=== PATIENT | female | born 1955 | race Caucasian/White ===

== ENCOUNTER → 2018-05-12 16:13 | Outpatient (CLI) | payer BC, SELFPAY ==
[2018-05-12 18:16] LABS: ALB/GLOB Ratio 1.3 RATIO (0.9-2.4); AST(SGOT) 22 U/L (15-37); Alanine Aminotransfer ALT/SGPT 32 U/L (13-56); Alkaline Phosphatase 65 U/L (45-117); Anion Gap 9 (5-15); BUN 11 mg/dL (7-18); BUN/Creat Ratio 15.2 RATIO (10-20); Calcium,Total 8.9 mg/dL (8.5-10.1); Chloride 105 mmol/L (98-107); Creatinine, Serum 0.72 mg/dL (0.55-1.02); EST Glomerular Filtration Rate 87 mL/min (>60); Est Glom Filt Rate - Afr Amer 106 mL/min (>60); Globulin 3.1 g/dL (2.2-4.2); Glucose 110 mg/dL (74-106); Potassium 3.5 mmol/L (3.5-5.1); Protein, Total 7.1 g/dL (6.4-8.2); Sodium Level 143 mmol/L (136-145)
[2018-05-12 18:17] LABS: Absolute Lymphocyte Count 2.02 X10^3/ul (0.83-4.51); Absolute Neutrophil Count 2.7 X10^3/uL (2.0-7.7); Basophil# 0.02 X10^3/uL; Basophil% 0.4 % (0-1); Eosinophil# 0.08 X10^3/uL; Eosinophils% 1.5 % (0-5); Hematocrit 36.9 % (37-47); Hemoglobin 11.7 g/dl (12.0-15.0); Lymphocyte # 2.02 X10^3/ul (4.0); Lymphocyte % 37.9 % (19-41); Mean Corp Hgb Conc 31.7 g/gl (32-36); Mean Corpuscular Hgb 29.2 pg (27.0-32.0); Mean Platelet Vol. 10.2 fl (6.2-12.0); Monocyte# 0.49 X10^3/uL; Monocyte% 9.2 % (0-10); Neutrophil # 2.71 X10^3/uL (2.7-7.7); Neutrophil % 50.8 % (47-70); Platelet Count 233 K/mm3 (150-450); RBC Distribution Width CV 12.9 % (11.6-14.6); RBC Distribution Width SD 43.2 fl (35.1-43.9); Red Blood Count 4.01 M/mm3 (4.2-5.4); White Blood Count 5.3 K/mm3 (4.4-11.0)
[2018-05-12 18:20] LABS: POSITIVE COUNT NO; POSITIVE DIFFERENTIAL NO; POSITIVE MORPHOLOGY NO
== END ==
PROVIDERS: Family Provider Family Medicine; PCP Family Medicine; Visit Provider Internal Medicine Rheumatology
DX: M06.4 Inflammatory polyarthropathy (principal); K21.0 Gastro-esophageal reflux disease with esophagitis; J30.9 Allergic rhinitis, unspecified
CPT/HCPCS: 36415; 80053; 85025

== ENCOUNTER → 2018-11-20 07:23 | Outpatient (CLI) | payer BC, SELFPAY ==
[2018-11-20 10:19] LABS: Absolute Lymphocyte Count 1.66 X10^3/ul (0.83-4.51); Absolute Neutrophil Count 2.5 X10^3/uL (2.0-7.7); Basophil# 0.02 X10^3/uL; Basophil% 0.4 % (0-1); Eosinophils% 2.1 % (0-5); Hematocrit 39.2 % (37-47); Hemoglobin 12.9 g/dl (12.0-15.0); Lymphocyte # 1.66 X10^3/ul (4.0); Lymphocyte % 35.5 % (19-41); Mean Corp Hgb Conc 32.9 g/gl (32-36); Mean Corpuscular Hgb 30.1 pg (27.0-32.0); Mean Corpuscular Volume 91.4 fL (81-99); Mean Platelet Vol. 10.4 fl (6.2-12.0); Monocyte% 8.5 % (0-10); Neutrophil % 53.5 % (47-70); Platelet Count 241 K/mm3 (150-450); RBC Distribution Width CV 12.5 % (11.6-14.6); RBC Distribution Width SD 41.5 fl (35.1-43.9); Red Blood Count 4.29 M/mm3 (4.2-5.4); White Blood Count 4.7 K/mm3 (4.4-11.0)
[2018-11-20 10:22] LABS: POSITIVE COUNT NO; POSITIVE DIFFERENTIAL NO; POSITIVE MORPHOLOGY NO
[2018-11-20 10:42] LABS: ALB/GLOB Ratio 1.4 RATIO (0.9-2.4); AST(SGOT) 26 U/L (15-37); Alanine Aminotransfer ALT/SGPT 33 U/L (13-56); Albumin, Serum 4.2 g/dL (3.2-5.0); Alkaline Phosphatase 62 U/L (45-117); Anion Gap 13 (5-15); BUN 12 mg/dL (7-18); BUN/Creat Ratio 16.4 RATIO (10-20); Calcium,Total 9.1 mg/dL (8.5-10.1); Chloride 105 mmol/L (98-107); Creatinine, Serum 0.73 mg/dL (0.55-1.02); EST Glomerular Filtration Rate 86 mL/min (>60); Est Glom Filt Rate - Afr Amer 104 mL/min (>60); Glucose 95 mg/dL (74-106); Potassium 4.1 mmol/L (3.5-5.1); Protein, Total 7.2 g/dL (6.4-8.2); Sodium Level 145 mmol/L (136-145)
== END ==
PROVIDERS: Family Provider Family Medicine; PCP Family Medicine; Referring Provider Internal Medicine Rheumatology; Visit Provider Internal Medicine Rheumatology
DX: M06.4 Inflammatory polyarthropathy (principal); K21.0 Gastro-esophageal reflux disease with esophagitis; J30.9 Allergic rhinitis, unspecified
CPT/HCPCS: 36415; 80053; 85025

== ENCOUNTER → 2019-05-18 07:15 | Outpatient (CLI) | payer BC, SELFPAY ==
[2019-05-18 10:31] LABS: Absolute Lymphocyte Count 1.09 X10^3/ul (0.83-4.51); Absolute Neutrophil Count 2.2 X10^3/uL (2.0-7.7); Basophil# 0.01 X10^3/uL; Basophil% 0.3 % (0-1); Eosinophil# 0.11 X10^3/uL; Eosinophils% 2.9 % (0-5); Hematocrit 39.2 % (37-47); Hemoglobin 12.9 g/dl (12.0-15.0); Lymphocyte # 1.09 X10^3/ul (4.0); Lymphocyte % 28.5 % (19-41); Mean Corp Hgb Conc 32.9 g/gl (32-36); Mean Corpuscular Hgb 29.5 pg (27.0-32.0); Mean Corpuscular Volume 89.5 fL (81-99); Mean Platelet Vol. 10.6 fl (6.2-12.0); Monocyte# 0.38 X10^3/uL; Monocyte% 9.9 % (0-10); Neutrophil # 2.23 X10^3/uL (2.7-7.7); Neutrophil % 58.1 % (47-70); Platelet Count 236 K/mm3 (150-450); RBC Distribution Width CV 12.6 % (11.6-14.6); RBC Distribution Width SD 40.9 fl (35.1-43.9); Red Blood Count 4.38 M/mm3 (4.2-5.4); White Blood Count 3.8 K/mm3 (4.4-11.0)
[2019-05-18 10:34] LABS: POSITIVE COUNT NO; POSITIVE DIFFERENTIAL NO; POSITIVE MORPHOLOGY NO
[2019-05-18 10:49] LABS: ALB/GLOB Ratio 1.2 RATIO (0.9-2.4); AST(SGOT) 22 U/L (15-37); Alanine Aminotransfer ALT/SGPT 28 U/L (13-56); Albumin, Serum 4.1 g/dL (3.2-5.0); Alkaline Phosphatase 70 U/L (45-117); Anion Gap 9 (5-15); BUN 12 mg/dL (7-18); BUN/Creat Ratio 15.1 RATIO (10-20); Calcium,Total 9.5 mg/dL (8.5-10.1); Chloride 106 mmol/L (98-107); EST Glomerular Filtration Rate 78 mL/min (>60); Est Glom Filt Rate - Afr Amer 94 mL/min (>60); Globulin 3.3 g/dL (2.2-4.2); Glucose 110 mg/dL (74-106); Potassium 3.9 mmol/L (3.5-5.1); Protein, Total 7.4 g/dL (6.4-8.2); Sodium Level 142 mmol/L (136-145)
== END ==
PROVIDERS: Family Provider Family Medicine; PCP Family Medicine; Referring Provider Internal Medicine Rheumatology; Visit Provider Internal Medicine Rheumatology
DX: M06.4 Inflammatory polyarthropathy (principal); K21.0 Gastro-esophageal reflux disease with esophagitis; J30.9 Allergic rhinitis, unspecified
CPT/HCPCS: 36415; 80053; 85025

== ENCOUNTER → 2019-11-12 07:54 | Outpatient (CLI) | payer BC, SELFPAY ==
[2019-11-12 10:57] LABS: Absolute Lymphocyte Count 1.98 X10^3/uL (0.83-4.51); Absolute Neutrophil Count 4.8 X10^3/uL (2.0-7.7); Basophil# 0.03 X10^3/uL; Basophil% 0.4 % (0-1); Eosinophil# 0.08 X10^3/uL; Eosinophils% 1.1 % (0-5); Hematocrit 40.4 % (37-47); Hemoglobin 13.2 g/dL (12.0-15.0); Lymphocyte # 1.98 X10^3/ul (4.0); Lymphocyte % 26.4 % (19-41); Mean Corp Hgb Conc 32.7 g/dL (32-36); Mean Corpuscular Hgb 30.2 pg (27.0-32.0); Mean Corpuscular Volume 92.4 fL (81-99); Mean Platelet Vol. 10.4 fl (6.2-12.0); Monocyte# 0.58 X10^3/uL; Monocyte% 7.7 % (0-10); NRBC Flagged by Analyzer 0 % (0-5); Neutrophil # 4.79 X10^3/uL (2.7-7.7); Neutrophil % 63.7 % (47-70); Platelet Count 288 K/mm3 (150-450); RBC Distribution Width CV 12.5 % (11.6-14.6); RBC Distribution Width SD 42.6 fl (35.1-43.9); Red Blood Count 4.37 M/mm3 (4.2-5.4); White Blood Count 7.5 K/mm3 (4.4-11.0)
[2019-11-12 11:18] LABS: ALB/GLOB Ratio 1.2 RATIO (0.9-2.4); AST(SGOT) 19 U/L (15-37); Alanine Aminotransfer ALT/SGPT 27 U/L (13-56); Albumin, Serum 4.2 g/dL (3.2-5.0); Alkaline Phosphatase 70 U/L (45-117); Anion Gap 6 (5-15); BUN 14 mg/dL (7-18); BUN/Creat Ratio 17.2 RATIO (10-20); Calcium,Total 9.8 mg/dL (8.5-10.1); Chloride 107 mmol/L (98-107); Creatinine, Serum 0.82 mg/dL (0.55-1.02); EST Glomerular Filtration Rate 76 mL/min (>60); Est Glom Filt Rate - Afr Amer 92 mL/min (>60); Globulin 3.4 g/dL (2.2-4.2); Glucose 104 mg/dL (74-106); Potassium 4.1 mmol/L (3.5-5.1); Protein, Total 7.6 g/dL (6.4-8.2); Sodium Level 141 mmol/L (136-145)
== END ==
PROVIDERS: Family Provider Family Medicine; PCP Family Medicine; Referring Provider Internal Medicine Rheumatology; Visit Provider Internal Medicine Rheumatology
DX: M06.4 Inflammatory polyarthropathy (principal); K21.0 Gastro-esophageal reflux disease with esophagitis; J30.9 Allergic rhinitis, unspecified
CPT/HCPCS: 36415; 80053; 85025

== ENCOUNTER → 2020-08-01 16:14 | Outpatient (CLI) | payer BC, SELFPAY ==
[2020-08-01 17:43] LABS: Absolute Lymphocyte Count 1.98 X10^3/uL (0.83-4.51); Absolute Neutrophil Count 3.1 X10^3/uL (2.0-7.7); Basophil# 0.01 X10^3/uL; Basophil% 0.2 % (0-1); Eosinophil# 0.09 X10^3/uL; Eosinophils% 1.6 % (0-5); Hematocrit 36.4 % (37-47); Hemoglobin 11.9 g/dL (12.0-15.0); Lymphocyte # 1.98 X10^3/ul (4.0); Lymphocyte % 34.9 % (19-41); Mean Corp Hgb Conc 32.7 g/dL (32-36); Mean Corpuscular Volume 91.7 fL (81-99); Mean Platelet Vol. 10.9 fl (6.2-12.0); Monocyte# 0.51 X10^3/uL; NRBC Flagged by Analyzer 0 % (0-5); Neutrophil # 3.06 X10^3/uL (2.7-7.7); Neutrophil % 53.9 % (47-70); Platelet Count 249 K/mm3 (150-450); RBC Distribution Width CV 12.3 % (11.6-14.6); RBC Distribution Width SD 41.6 fl (35.1-43.9); Red Blood Count 3.97 M/mm3 (4.2-5.4); White Blood Count 5.7 K/mm3 (4.4-11.0)
[2020-08-01 18:21] LABS: ALB/GLOB Ratio 1.1 RATIO (0.9-2.4); AST(SGOT) 25 U/L (15-37); Alanine Aminotransfer ALT/SGPT 31 U/L (13-56); Albumin, Serum 3.9 g/dL (3.2-5.0); Alkaline Phosphatase 74 U/L (45-117); Anion Gap 6 (5-15); BUN 19 mg/dL (7-18); BUN/Creat Ratio 25.5 RATIO (10-20); Calcium,Total 9.3 mg/dL (8.5-10.1); Chloride 103 mmol/L (98-107); Creatinine, Serum 0.74 mg/dL (0.55-1.02); EST Glomerular Filtration Rate 84 mL/min (>60); Est Glom Filt Rate - Afr Amer 101 mL/min (>60); Globulin 3.4 g/dL (2.2-4.2); Glucose 119 mg/dL (74-106); Potassium 3.8 mmol/L (3.5-5.1); Protein, Total 7.3 g/dL (6.4-8.2); Sodium Level 139 mmol/L (136-145)
== END ==
PROVIDERS: PCP Family Medicine; Referring Provider Internal Medicine Rheumatology; Visit Provider Internal Medicine Rheumatology
DX: M06.4 Inflammatory polyarthropathy (principal); K21.0 Gastro-esophageal reflux disease with esophagitis; J30.9 Allergic rhinitis, unspecified
CPT/HCPCS: 36415; 80053; 85025

== ENCOUNTER → 2022-07-11 | Outpatient (CLI) | payer BC, SELFPAY ==
--- NOTE | 2022-07-11 16:53 | CT_ITS ---
EXAM: CT RIGHT LOWER EXTREMITY WITHOUT INTRAVENOUS CONTRAST CLINICAL INDICATION: templating for right VINNY TECHNIQUE: Helically acquired images were obtained of the right lower extremity without intravenous contrast. 2-D reformats were performed by the technologist. CTDIvol = ( 12.14 ) mGy, DLP = ( 637.49 ) mGycm This CT exam was performed using one or more of the following dose reduction techniques: automated exposure control, adjustment of the mA and/or kV according to patient size, and/or use of iterative reconstruction technique. This report was created using [employer] technology. COMPARISON: None. FINDINGS: End-stage osteoarthrosis involving the right hip joint. No acute or healing fracture or malalignment. No unusual or suspicious lytic or sclerotic lesions of bone. Degenerative changes of the spine and SI joints as well as the pubic symphysis. Great 1 degenerative anterolisthesis of L4 on L5. Moderate osteoarthrosis of the medial femoral tibial compartments bilaterally. CT/Extremity Lower without Contra IMPRESSION: 1. End-stage osteoarthrosis involving the right hip joint. 2. Moderate osteoarthrosis of the medial femoral tibial compartments bilaterally. Electronically Signed: Sebastian Block MD at 1:07 EDT ,
== END | disposition home or self-care (01) ==
LOC: CT 16:51
PROVIDERS: PCP Family Medicine; Referring Provider Orthopaedic Surgery; Visit Provider Orthopaedic Surgery
DX: M16.11 Unilateral primary osteoarthritis, right hip (principal)
CPT/HCPCS: 73700

== ENCOUNTER 2022-08-27 05:27 | Day surgery (SDC) | payer BC, SELFPAY ==
[2022-08-14 16:14] LABS: Absolute Lymphocyte Count 2.72 X10^3/uL (0.83-4.51); Absolute Neutrophil Count 4.1 X10^3/uL (2.0-7.7); Basophil# 0.04 X10^3/uL; Basophil% 0.5 % (0-1); Eosinophils% 1.3 % (0-5); Hematocrit 38.1 % (37-47); Hemoglobin 13.4 g/dL (12.0-15.0); Lymphocyte # 2.72 X10^3/ul (0.83-4.51); Lymphocyte % 36.1 % (19-41); Mean Corp Hgb Conc 35.2 g/dL (32-36); Mean Corpuscular Hgb 30.9 pg (27.0-32.0); Mean Platelet Vol. 9.8 fl (6.2-12.0); Monocyte# 0.57 X10^3/uL; Monocyte% 7.6 % (0-10); NRBC Flagged by Analyzer 0 % (0-5); Neutrophil # 4.08 X10^3/uL (2.7-7.7); Neutrophil % 54.1 % (47-70); Platelet Count 276 K/mm3 (150-450); RBC Distribution Width CV 12.7 % (11.6-14.6); RBC Distribution Width SD 41.1 fl (35.1-43.9); Red Blood Count 4.33 M/mm3 (4.2-5.4); White Blood Count 7.5 K/mm3 (4.4-11.0)
[2022-08-14 16:24] LABS: Prothrombin Time (Protime)PT. 12.5 SECONDS (11.7-14.9)
[2022-08-14 16:25] LABS: Partial Thromboplast Time 25.4 Seconds (24.1-36.2)
[2022-08-14 16:44] LABS: Hemoglobin A1c 6.6 % (3.8-5.6)
[2022-08-22 10:34] LABS: Fructosamine 276 umol/L (0-285)
[2022-08-27] VITALS (13 sets, daily range): BP systolic 103–133; BP diastolic 48–68; PULSE 49–83; RESP 14–16; TEMP 36.2–36.7; O2SAT 94–100; BMI 24.5
--- NOTE | 2022-08-27 | HIP_PTH ---
PATIENT: TERRENCE BUNDY [place] [facility] [id number] AGE/SX: 66/F ROOM: RE08/27/[address]: Dr. Roscoe Swanson DO : 1955 BED: DIS: 08/27/2022 SPEC #: [id number] RECD: 08/27/22 13:30 STATUS: COURTNEY PETER #: [id number] CARLOS: 08/27/22 00:[address]: Roscoe Swanson DEPT: SURGICAL PATHOLOGY RECD BY: Román Aj ENTERED: 08/27/22 13:30 SP TYPE: TOTAL HIP OTHR DR: Dr. Geovani Smith MD Tissues: Hip, NOS Procedures: Decalcification bone/plaque Surgery Specimen Level IV HEADER OPERATION: Total hip replacement robotic arm assist PRE-OP DIAGNOSIS: Degenerative joint disease of right hip TISSUE SUBMITTED: Right hip bone MICROSCOPIC DIAGNOSIS Right hip bone, total hip replacement/resection: Femoral head with degenerative osteoarthritic changes. SJ:porfirio 08/30/2022 MICROSCOPIC DESCRIPTION Slides are reviewed. GROSS DESCRIPTION Received is one container labeled with the patient's name and designated right hip bone. The specimen consists of a distorted femoral head measuring 5.5 x 4.5 x 4.5 cm. Also present in the specimen container are multiple irregular fragments of soft tissue and bone reamings aggregating to 6 x 5 x 1 cm. The articular surface displays prominent osteophyte formation, eburnation and bone erosion. Spray Gun Operator sections are submitted in two cassettes after decalcification as follows: 1 - bone reamings, 2 ? femoral head. / AM:porfirio 08/27/2022 TC:5 CPT: 63960, 51163
[2022-08-27] MEDS: Lactated Ringers 1,000 ML 999 ML IV (06:17)
[2022-08-27] MEDS: Magnesium 1 GM over 15 mins IV (06:17)
[2022-08-27] MEDS: Gabapentin 600 MG Tablet PO (06:23)
[2022-08-27] MEDS: Scopolamine 1mg/72hr Patch 1 PATCH TD (06:23)
[2022-08-27] MEDS: Acetaminophen 500 MG Tablet 1000 MG PO ×2 (06:23→14:00)
[2022-08-27] MEDS: Celecoxib 200 MG Capsule 400 MG PO (06:24)
[2022-08-27 06:50] LABS: Bedside Glucose 127 mg/dL (74-106)
--- NOTE | 2022-08-27 07:11 | HP.PCM_ITS ---
History and Physical Date of Admission: 08/27/22 [facility] [address] [place] [address] OFFICE VISIT Date of Service:? 08/14/22 MR#: [id number] Acct: [id number] Name:TERRENCE PEREZ Rep #: [id number] : 1955 ? ? Provider: Dr. Roscoe Swanson, DO Age/Sex:? 66/F ? ? [place] [facility] [place] Status: Signed Intake Intake Visit Reasons:?right hip Is patient in pain?: Yes Allergies cefuroxime [From Ceftin] Allergy (Severe, Verified 08/14/22 15:20) Rash Medications calcium carbonate 500 mg calcium (1,250 mg) chewable tablet (Calcium 500) 500 mg PO DAILY 06/21/22 [History Confirmed 08/14/22] chlorthalidone 25 mg tablet 25 tablet PO DAILY 06/21/22 [History Confirmed 08/14/22] cholecalciferol (vitamin D3) 10 mcg (400 unit) capsule 10 mcg PO DAILY 06/21/22 [History Confirmed 08/14/22] fluticasone propionate 50 mcg/actuation nasal spray,suspension (Flonase Allergy Relief) 1 spray intranasal PRN PRN ALLERGIES 06/21/22 [History Confirmed 08/14/22] gabapentin 100 mg capsule 100 mg PO QHS 06/21/22 [History Confirmed 08/14/22] lansoprazole 30 mg capsule,delayed release (Prevacid) 30 mg PO DAILY 06/21/22 [History Confirmed 08/14/22] loratadine 10 mg tablet (Claritin) 10 mg PO DAILY 06/21/22 [History Confirmed 08/14/22] mecobalamin (vitamin B12) 5,000 mcg disintegrating tablet 5,000 mcg PO DAILY 06/21/22 [History Confirmed 08/14/22] multivitamin 1 tab PO DAILY 06/21/22 [History Confirmed 08/14/22] oxycodone-acetaminophen 5 mg-325 mg tablet (Percocet) 1 tablet PO PRN PRN Pain 06/21/22 [History Confirmed 08/14/22] potassium citrate 99 mg capsule 200 mg PO DAILY 06/21/22 [History Confirmed 08/14/22] [facility] Medical History?(Updated 08/13/22 @ 13:26 by Julisa Lowe) Ambulates with cane Arthritis Back pain Cancer Cardiology follow-up encounter Former smoker Gastric reflux High cholesterol History of colon cancer History of echocardiogram History of edema History of hiatal hernia History of Holter monitoring History of irregular heartbeat History of steroid therapy Hypertension Migraine headache Post-menopausal Shortness of breath on exertion Walker as ambulation aid Wears contact lenses Wears glasses Surgical History?(Updated 06/21/22 @ 08:33 by Jailyn Yoo) History of colon resection Hx of bilateral oophorectomy Hx of cholecystectomy Hx of hysterectomy Family History?(Updated 06/21/22 @ 08:35 by Jailyn Yoo) Father Heart disease Social History?(Updated 06/21/22 @ 08:35 by Jailyn Yoo) Smoking Status:? Former smoker pack-years: 1 Tobacco: How many years used:? 15 alcohol intake:? never HPI right hip Details: Parts of this documentation were recorded by a scribe, this documentation accurately reflects the service provided and the decisions made by me, Dr. Roscoe Swanson, DO 08/14/22 1511. TERRENCE BUNDY is a 66 year old F here today for her preop appointment for her right total hip arthroplasty. Patient states that her hip pain is progressing. Her pain is over her posterior hip, into her groin and anterior thigh. She is unable to lift her leg. She is using a rollator to ambulating. She is taking percocet and advil for pain. Ortho Exam General General: Yes no acute distress Neurologic: Yes alert and Yes oriented x3 Psychologic: Yes reasonable and appropriate Right Knee Skin/Wound: Yes CDI, No erythema, No ecchymosis and No swelling Right Hip Skin: Yes CDI, No Ecchymosis, No soft tissue swelling and No Erythema HIP: no skin changes no masses 5 internal rotation with pain 78 external rotation without groin pain /4 dorsalis pedis and posterior tibial no significant edema 5 out of 5 knee and ankle strength Intact sensation light touch throughout lower extremity Coding Level of Care Code Off vis,est,level 3 Diagnoses Degenerative joint disease of right hip? M16.11 Assessment and Plan Assessment and Plan (1) Degenerative joint disease of right hip: ?Status:?Acute Plan Spoke with the patient about the total hip arthroplasty surgery and recovery. Explained she may have a slight leg length discrepancy after surgery due to the collapse of her hip as seen on the CT scan. Spoke with her about the advantage of posterior approach. She will have 6 weeks of stict hip precautions. Explained she will be able to return to driving when she feels confident she can safely control a vehicle. Explained she has a bad back which can cause her right leg pain which wont help with a total hip arthroplasty. She does not need to drink the ensure drink due to stomach issues.? She will be same day surgery, explained that she will be at the hospital for about 6 hours post op and then will be able to go home. Risks, benefits and alternatives of surgery reviewed including but not limited to bleeding, infection, nerve , artery and/or tissue damage, fracture, VTE, leg length discrepancy, dislocation, foot drop, need for hip precautions, continued pain and expected post-operative course. Spoke with her about the risk of foot drop. Follow up for 2 weeks post op or sooner if pain, swelling, numbness or associated symptoms, or concerns develop.? All questions answered. Patient in agreement of plan. 08/14/22 4010 <Electronically signed by Roscoe Swanson DO> Date Roscoe Swanson DO Cosignkassy Signature: Date (if applicable) ? CC: ? ~I have re-examined the patient. There are no clinical changes since date of exam
[2022-08-27] MEDS: Vancomycin IV 1,000 MG/200 ML BAG 200 MG IV (07:13)
[2022-08-27] MEDS: dexAMETHasone 10 MG/ML Vial IV (07:55)
[2022-08-27] MEDS: Lactated Ringers 1,000 ML 100 ML IV (08:00)
--- NOTE | 2022-08-27 09:47 | DCINST_ITS ---
Discharge Instructions Diet Discharge Diet: No restrictions Activity Weight Bearing Status: Weight bearing as tolerated Dressing / Incision Call your doctor if you observe: Shortness of breath and Chest pain Additional Dressing/Incision Instructions:: Do not shower 72hrs. Begin daily showering warm water antibacterial soap postop day #3( 72hrs Post-operatively) and then daily. Leave the dressing on for 72 hours postoperatively then may remove prior to first shower and change dressing daily after this until no drainage for 2 consecutive days then may leave open to air. Follow hip precautions that were reviewed in hospital. Wear compression stockings, may remove at night. Start physical therapy as directed in hospital. Follow prescriptions instructions do not take any other pain medication or differ dosing without consulting your physician. Do NOT take your preoperative Percocet . do not combine pain medications. do not take oral NSAIDs until blood thinner has been completed , then may begin the day after completion if needed . Call Dr. Swanson's office with any concerns. Follow Up Care Please Follow Up With: Roscoe Swanson DO When: 2 weeks Test Results: Test results from this visit will be discussed in further detail at your follow- up appointment, if applicable. Discharge Plan Admission Attending Provider: Roscoe Swnason Primary Care Provider: Geovani Smith Discharge Orders/Prescriptions Prescriptions: New acetaminophen 500 mg Tablet 1,000 mg PO Q6H Qty: 100 1RF oxycodone 5 mg tablet 5 - 10 mg PO Q4H PRN (Reason: pain) 7 Days Qty: 60 0RF Eliquis 2.5 mg tablet 2.5 mg PO BID Qty: 42 0RF clindamycin HCl 300 mg capsule 600 mg PO Q8H Qty: 4 0RF Rx Instructions: Take 2 tablets 9 PM day of surgery and 2 tablets after you wake up day after surgery in the morning Continued lansoprazole [Prevacid] 30 mg capsule,delayed release(DR/EC) 30 mg PO DAILY loratadine [Claritin] 10 mg tablet 10 mg PO DAILY fluticasone propionate [Flonase Allergy Relief] 50 mcg/actuation spray,suspension 1 spray intranasal PRN PRN (Reason: ALLERGIES) Rx Instructions: administer into each nostril gabapentin 100 mg capsule 100 mg PO QHS Label Comments: TAKE 1 CAPSULE BY MOUTH EVERY DAY FOR 30 DAYS chlorthalidone 25 mg tablet 25 tablet PO DAILY multivitamin Tablet 1 tab PO DAILY cholecalciferol (vitamin D3) 10 mcg (400 unit) capsule 10 mcg PO DAILY calcium carbonate [Calcium 500] 500 mg calcium (1,250 mg) tablet,chewable 500 mg PO DAILY mecobalamin (vitamin B12) 5,000 mcg tablet,disintegrating 5,000 mcg PO DAILY potassium citrate 99 mg capsule 200 mg PO DAILY Discontinued oxycodone-acetaminophen [Percocet] 5-325 mg tablet 1 tablet PO PRN PRN (Reason: Pain) Referrals / Follow Up: Geovani Smith MD [Primary Care Provider] - Disposition Disposition (needs filled in before D/C Order can be placed): Home, Self Care
--- NOTE | 2022-08-27 09:57 | OP.PCM_ITS ---
Operative Report Date of Procedure: 08/27/22 Preoperative diagnosis: Right hip DJD Postoperative diagnosis: Same Procedure: CT-guided Makoplasty assisted right total hip arthroplasty Implants: Barnum Accolade II stem size 4, 132 degree neck angle -4 neck length 50 mm Trident II acetabular shell with 40 mm cancellous screw 32 mm ceramic head Anesthesia: Spinal EBL: 175 cc Complications: None Condition: Stable to PACU Indication for procedure: This is a 66-year-old female who has had long-standing arthrosis of the hip and 15 mm of shortening who has failed conservative treatment and wished to undergo total hip arthroplasty. We did discuss operative versus nonoperative intervention including risks of bleeding, infection , nerve artery tissue damage, need for further surgery, fracture, leg length discrepancy dislocation blood clot and need for postoperative physical therapy and postoperative expectations. An informed consent was signed. Procedure: Patient was met in the preoperative holding area once again the operative extremity was identified by both patient and physician and was marked. Patient was met by anesthesia . Anesthesia was started. patient was then positioned in the lateral decubitus position on a well-padded pegboard with an axillary roll. All bony prominences were checked and padded. The patient was prepped and draped in the usual sterile fashion. A timeout was called to ensure the proper patient procedure and extremity were being contemplated. Anatomic landmarks were palpated and marked for a standard posterior lateral approach. Prior to this the ASIS was palpated and 3 fingerbreadths proximal to this 3 pins were placed at a 45 degree angle into the iliac crest with good purchase, stab incisions were made with a 15 blade into the skin prior to placement. The Makoplasty array was then secured. A 10 blade scalpel was used to make a posterior incision through the skin and subcutaneous tissue. retractors were used and electrocautery was used to maintain meticulous hemostasis and dissect full-thickness flaps until the gluteal fascia was reached. The gluteal fascia was incised in line with the gluteal fibers. The bursal tissue was then freed from the underside and a Charnley retractor was placed. The femoral trochanteric checkpoint was placed and leg length was assessed using the trochanteric checkpoint and an EKG lead that was placed on the knee prior to prepping the leg .the fat pad was then elevated off of the external rotators with electrocautery and the external rotators were dissected off of the greater trochanter including the piriformis and were tagged with #1 Ethibond for later repair. The joint capsule opened with posterior trapdoor technique. The hip was surgically dislocated. The measurement on the preoperative CT from the top of the lesser trochanter to the femoral neck cut was marked Hohmann was placed around the lesser trochanter. A neck cutting guide was used to clem the neck with a Bovie and an oscillating saw was used complete the femoral neck cut. The femoral head was then removed and sized. We then turned our attention to the acetabulum. A Bovie was used to make a perforation in the anterior joint capsule and a Thomas retractor was placed this was repeated in the 6 o'clock position and a wide chacorta was placed there. With a long handled knife the labral and pulvinar tissue were removed. We then registered the acetabulum with the pointing array and confirmed our landmarks. Once the socket was thoroughly prepared and labral tissue and pulvinar was removed we single reamed with the robotic arm. We then used the robotic arm to position the acetabular implant and impacted it into place under robotic guidance. We then proceeded to place a posterior superior screw by drilling first measuring and inserting the screw. We then inserted a trial liner. And turned our attention back to the femur at this point a femoral elevator was used. As well as a pointed wide Hohmann around the lesser trochanter and a Hohmann to help retract the gluteus medius. A box chisel was used to remove excess lateral neck followed by a canal finder and a lateralizing reamer. This was followed by sequential broaches. Attention was made of the version within the canal based on preoperative templating. Once the final broach was seated we then trialed reduced the hip it was determined that a 132 degree neck angle with a -4 neck length was the appropriate size. Patient was 50 mm short preoperatively I did increase her preoperative length by 1 cm but did not feel comfortable lengthening it any further as her hip was already tight and I felt she would lose extension and abduction of the hip which was seen with trials. we then checked stability with shuck testing as well as flexion and internal rotation. then proceeded with hip extension and checked leg lengths at the knees and heels as well as with the trochanteric checkpoint and knee EKG lead. At this point trials were removed. A liner was inserted to the cup. The femoral stem was inserted. We re-trialed and then proceeded to impact the femoral head onto the Robin taper. We then surgically reduce the hip check stability again and leg lengths and were satisfied. Betadine rinse was allowed to sit for 5 minutes while everyone changed their gloves. Thorough irrigation was performed. Followed by closure of the external rotators with #2 FiberWire followed by closure of gluteal fascia with #1 Ethibond. 0 Vicryl fat stitches and 2-0 Vicryl subcutaneous stitches and julien in the skin. [place] were placed in the skin pin sites over the iliac crest and dressed with a Mepilex dressing. The main incision was dressed with a Mepilex ag dressing and an abduction pillow was placed. Patient tolerated the procedure well there was no intraoperative complications all counts were correct and the patient was brought back to the PACU in stable condition
--- NOTE | 2022-08-27 10:20 | RAD_ITS ---
STUDY: X-RAY - PELVIS AND RIGHT HIP REASON FOR EXAM: Female, 66 years old. Post op in pacu -- in PACU TECHNIQUE: 2 views of the pelvis and hip. COMPARISON: Comparison is made with prior study dated 06/21/2022. FINDINGS: The patient is status post right total hip replacement. There is good alignment. Postoperative soft tissue changes. RAD/Hip Min 2 Views (Portable) IMPRESSION: Status post right total hip prosthesis. There is good alignment. Postoperative soft tissue changes. Electronically Signed: Elia Bahena MD at 15:27 EDT ,
[2022-08-27] MEDS: oxyCODONE 5 MG Tablet PO (12:14)
[2022-08-27] MEDS: Clindamycin 900 MG/50 ML BAG 75 MG IV (14:00)
== END 2022-08-27 16:45 | disposition home or self-care (01) ==
LOC: SDC 05:30 → AC 05:30
PROVIDERS: Anesthesiology; PCP Family Medicine; Referring Provider Orthopaedic Surgery; Visit Provider Orthopaedic Surgery
PROC: 8E0Y0CZ Robotic Assisted Procedure of Lower Extremity, Open Approach (ICD-10-PCS; CPT 27130; principal; 2022-08-27 07:00)
DX: M16.11 Unilateral primary osteoarthritis, right hip (principal); I10 Essential (primary) hypertension; E78.00 Pure hypercholesterolemia, unspecified; Z79.899 Other long term (current) drug therapy; Z87.891 Personal history of nicotine dependence
CPT/HCPCS: 27130; S2900; 01214; 36415; 73502; 82962; 82985; 83036; 83735; 85025; 85610; 85730; 87081; 88305; 88311; 97162; C1776; J7120; J2405; J3475

== ENCOUNTER → 2023-06-23 | Outpatient (CLI) | payer BC, SELFPAY ==
--- NOTE | 2023-06-23 16:17 | RAD_ITS ---
INDICATION: DISC DEGENERATION EXAMINATION/TECHNIQUE: X-RAY - XR Spine Cervical 6 or More Views COMPARISON: FINDINGS: VERTEBRAE: Preserved vertebral body height. No fracture. Straightening of the normal cervical lordosis. No significant facet arthropathy. DISCS: C3-4: 2 mm anterolisthesis in flexion. C4-5: 2 mm anterolisthesis in neutral position and extension. 3 mm anterolisthesis in flexion. C5-6. 3 mm anterolisthesis in neutral position and in flexion, 2 mm anterolisthesis in extension. C6-7: Disc space narrowing. NECK SOFT TISSUES: No prevertebral soft tissue widening. LUNG APICES: Clear. RAD/Cerv Spine Obl/Flex/Ext Comp IMPRESSION: No acute fracture. Mild anterolisthesis at C3-4, C4-5 and C5-6, as above. Electronically Signed: Radha Barlow MD at 17:36 EDT Reading Location ID and State: [id number] / Tel , Service support ,
--- NOTE | 2023-06-23 16:17 | RAD_ITS ---
STUDY: X-RAY - LEFT SHOULDER REASON FOR EXAM: Female, 67 years old. PRIMARY OSTEOARTHRITIS TECHNIQUE: 4 view(s) of the shoulder. COMPARISON: None. FINDINGS: Mildly narrowed glenohumeral articulation. Mildly narrowed acromioclavicular joint. Normal acromion. Normal humeral head and visualized proximal humerus. The soft tissue structures are unremarkable. Normal visualized pulmonary apex. RAD/Shoulder min 2 Views IMPRESSION: Mild degenerative changes. No acute fracture or other significant bony pathology Electronically Signed: Geovani Preciado MD at 16:38 EDT ,
== END | disposition home or self-care (01) ==
PROVIDERS: PCP Family Medicine; Referring Provider Registered Nurse Maternal Newborn; Visit Provider Registered Nurse Maternal Newborn
DX: M50.30 Other cervical disc degeneration, unspecified cervical region (principal)
CPT/HCPCS: 72052; 73030

== ENCOUNTER → 2025-05-24 | Outpatient (CLI) | payer BC, SELFPAY ==
--- NOTE | 2025-05-24 16:45 | MRI_ITS ---
EXAM: PELVIS (ROUTINE) 05/24/2025 CLINICAL HISTORY: SACRAL AND SACROCOCCYGEAL FX. TECHNIQUE: T1, T2, stir, PELVIS (ROUTINE) Multiplanar and multisequence images were obtained without intravenous gadolinium contrast. CONTRAST: None COMPARISON: None FINDINGS: Bone marrow: There is metallic artifact from a right hip prosthesis. There is normal marrow signal in the pelvic bones with no evidence of occult fracture. There is normal marrow signal in the included portion of the left femur. There is grade 1 spondylolisthesis at L4-5, 0.4 cm. The SI joints are aligned. There is a 0.5 x 1.0 cm subcortical cyst in the anterior superior acetabulum on the left. The sacral and coccygeal segments are aligned. Soft tissues: There is moderate gluteus medius and gluteus minimus tendinopathy without full-thickness tear on the right and left with bilateral trochanteric bursitis. There is no pelvic mass or free fluid. There is no adenopathy. MRI/Pelvis (Routine) IMPRESSION: There is moderate gluteus medius and gluteus minimus tendinopathy without full- thickness tear on the right and left with bilateral trochanteric bursitis. There is grade 1 spondylolisthesis at L4-5, 0.4 cm. There is a 0.5 x 1.0 cm subcortical cyst in the anterior superior acetabulum on the left. [facility]
== END | disposition home or self-care (01) ==
LOC: MRI 16:07
PROVIDERS: PCP Nurse Practitioner Primary Care; Referring Provider Registered Nurse Maternal Newborn; Visit Provider Registered Nurse Maternal Newborn
DX: M48.48XA Fatigue fracture of vertebra, sacral and sacrococcygeal region, initial encounter for fracture (principal)
CPT/HCPCS: 72195